=== PATIENT | male | born 1975 | race Two or more races ===

== ENCOUNTER 2020-02-28 10:42 | Emergency (ER) | payer OTHER ==
[~2020-02-28] VITALS: Ht 182.9 cm; Wt 136.0 kg
[2020-02-28] MEDS ORDERED: DEXAMETHASONE 4 MG/ML, 1ML IVPush ONE (11:00)
[2020-02-28] MEDS ORDERED: METF500T17 PO (11:05)
[2020-02-28] MEDS ORDERED: LISI2.5T PO (11:05)
[2020-02-28] MEDS ORDERED: DULO20CA45 PO (11:05)
[2020-02-28] MEDS ORDERED: GABA-827 PO (11:05)
[2020-02-28] MEDS ORDERED: ONDA4TAB7 PO ×2 (11:05→11:57)
[2020-02-28] MEDS ORDERED: IBUP-1221 PO (11:05)
--- NOTE | 2020-02-28 11:25 | NUR ---
COVID + ON THE 7th. SPO2 85% AT HOME. CAME IN FOR SOB. PT IN BED ON 5L NC AT 97% WIHT AN 18G IN LEFT WRIST. 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 WENT OVER PLAN OF CARE FROM ORDER LIST. AGREES TO PLAN. EKG AND LABS DONE.
--- NOTE | 2020-02-28 11:26 | NUR ---
REPORT GIVEN TO BRANDON AL
[2020-02-28] MEDS ORDERED: PLEASE ENTER ALLERGIES MC SCH (11:30)
[2020-02-28] MEDS ORDERED: PLEASE ENTER HEIGHT AND WEIGHT MC SCH (11:30)
[2020-02-28 11:40] LABS: BASOPHILS % (AUTO) 0 % (0-1); EOSINOPHILS % (AUTO) 0 % (1-7); LYMPHOCYTES % (AUTO) 13 % (22-44); MEAN CORPUSCULAR HEMOGLOBIN 28.5 pg (27.5-34.5); MEAN CORPUSCULAR HGB CONC 33.5 g/dL (33.2-36.2); MEAN PLATELET VOLUME 8.2 fL (7.4-10.4); MONOCYTES % (AUTO) 4 % (2-9); NEUTROPHILS % (AUTO) 83 % (42-75); PLATELET COUNT 251 x10^3/uL (130-400); RED BLOOD COUNT 5.46 x10^6/uL (4.38-5.82); RED CELL DISTRIBUTION WIDTH 13.7 % (9.4-14.8)
[2020-02-28 11:44] LABS: MD NO
[2020-02-28 11:52] LABS: ALANINE AMINOTRANSFERASE 54 U/L (12-78); ALBUMIN 2.8 g/dL (3.4-5.0); ANION GAP 8 mmol/L (5-15); CALCIUM 8.6 mg/dL (8.5-10.1); CHLORIDE 105 mmol/L (98-107); CREATININE 1.36 mg/dL (0.7-1.3)
[2020-02-28] MEDS ORDERED: ATOR20TA37 PO (11:57)
[2020-02-28] MEDS ORDERED: DULO30CA2 PO (11:57)
[2020-02-28] MEDS ORDERED: INSU100I13 SC (11:57)
[2020-02-28] MEDS ORDERED: METF500T27 PO (11:57)
[2020-02-28] MEDS ORDERED: BENZ200C48 PO (11:57)
[2020-02-28] MEDS ORDERED: LISI-167 PO (11:57)
[2020-02-28] MEDS ORDERED: IBUP-1222 PO (11:57)
[2020-02-28 11:58] LABS: D-DIMER (DIC) 1.05 ug/mlFEU (0.00-0.52); PROTIME 10.3 Seconds (9.6-11.5)
--- NOTE | 2020-02-28 11:59 | NUR ---
CONTACTED [facility] TO VERIFY MEDICATION DOSES.
[2020-02-28 12:08] LABS: ALKALINE PHOSPHATASE 81 U/L (45-117); BILIRUBIN,TOTAL 0.4 mg/dL (0.2-1.0); TOTAL PROTEIN 7.7 g/dL (6.4-8.2)
--- NOTE | 2020-02-28 12:20 | NUR ---
[facility]STER [phone]
[2020-02-28 13:55] VITALS: BP 117/74
[2020-02-28] MEDS ORDERED: CEFTRIAXONE PMX 1GM/50ML 50 ML ONE (14:47)
--- NOTE | 2020-02-28 14:55 | NUR ---
REPORT TO TIERRA AL AT [facility].
--- NOTE | 2020-02-28 16:30 | NUR ---
PT TRANSFERRED TO [facility]. REPORT PROVIDED TO [facility] STAFF.
[2020-02-28] MEDS ORDERED: ATORVASTATIN 20 MG TABLET PO SCH (21:00)
[2020-02-28] MEDS ORDERED: metFORMIN XR 500 MG TAB.ER.24H PO SCH (21:00)
[2020-02-29] MEDS ORDERED: LISINOPRIL 10 MG TABLET PO SCH (09:00)
[2020-02-29] MEDS ORDERED: DULOXETINE 30 MG CAPSULE.DR PO SCH (09:00)
[2020-02-29] MEDS ORDERED: INSULIN GLARGINE 100 UNITS/ML, PEN SQ-INSULIN SCH (09:00)
== END 2020-02-28 16:44 ==
LOC: ED 12:53 → SUATTDRO 13:12 → ED 16:44
PROVIDERS: ATTEND Internal Medicine
DX: U07.1 COVID-19 (principal); J96.91 Respiratory failure, unspecified with hypoxia; J18.9 Pneumonia, unspecified organism; R00.0 Tachycardia, unspecified; E11.9 Type 2 diabetes mellitus without complications
CPT/HCPCS: 36415; 71045; 80053; 82728; 83605; 83615; 84145; 85025; 85049; 85379; 85384; 85610; 85730; 86140; 87040; 93005; 99285